=== PATIENT | female | born 1995 | race Caucasian/White ===

== ENCOUNTER 2018-09-01 21:41 | Outpatient (CLI) | payer OTHER ==
[2018-09-01 22:28] LABS: ADD UMIC NO; UR ASCORBIC ACID 40 mg/dL (NEGATIVE); UR BILIRUBIN (Dip) NEGATIVE (NEGATIVE); UR BLOOD (Dip) NEGATIVE (NEGATIVE); UR CLARITY SLIGHTLY CLOUDY (CLEAR); UR COLOR YELLOW (YELLOW); UR GLUCOSE (Dip) NEGATIVE (NEGATIVE); UR KETONES (Dip) NEGATIVE (NEGATIVE); UR LEUKOCYTE ESTERASE (Dip) NEGATIVE Leu/ul (NEGATIVE); UR NITRITE (Dip) NEGATIVE (NEGATIVE); UR RBC 0 /HPF (0-5); UR SQUAMOUS EPITHELIAL CELL FEW /HPF (FEW); UR TOTAL PROTEIN (Dip) NEGATIVE (NEGATIVE); UR UROBILINOGEN (Dip) 2+ mg/dL (NEGATIVE); UR WBC 3 /HPF (0-5)
== END 2018-09-01 23:55 | disposition home or self-care (01) ==
LOC: OBT 21:41 → L-D 21:43 → OBT 23:55
DX: O47.03 False labor before 37 completed weeks of gestation, third trimester (principal); O26.893 Other specified pregnancy related conditions, third trimester; Z3A.34 34 weeks gestation of pregnancy
CPT/HCPCS: 81001; 81003

== ENCOUNTER 2018-09-18 10:06 | Inpatient (IN) | payer OTHER ==
[2018-09-18] MEDS: LACTATED RINGER'S 1,000 ML IV ×2 (11:06→11:47)
[2018-09-18 11:37] LABS: RUPTURE FETAL MEMBRANES POSITIVE (NEGATIVE)
[2018-09-18] MEDS ORDERED: CARBOPROST 250 MCG INJ IM ×2 (12:00→16:00)
[2018-09-18] MEDS ORDERED: MISOPROSTOL 200 MCG TAB PR ×2 (12:00→16:00)
[2018-09-18] MEDS ORDERED: OXYTOCIN 30 UNITS/LR 500 ML IV ×2 (12:00→16:00)
[2018-09-18] MEDS ORDERED: METHYLERGONOVINE 0.2 MG INJ IM ×2 (12:00→16:00)
[2018-09-18] MEDS ORDERED: LIDOCAINE 1% (MPF) 30 ML INJ INJ (12:00)
[2018-09-18] MEDS ORDERED: CLINDAMYCIN 900 MG/D5W (PMX) 50 ML IVPB (12:11)
[2018-09-18 12:15] LABS: ADD MAN DIFF? NO
[2018-09-18 12:16] LABS: WHITE BLOOD COUNT 9.3 10^3/ul (4.8-10.8)
[2018-09-18 12:16] LABS: BASOPHILS % 0.2 % (0.0-2.0); EOSINOPHILS % 0.2 % (0.0-7.0); HEMATOCRIT 34.8 % (37.0-47.0); HEMOGLOBIN 11.6 g/dl (12.0-16.0); LYMPHOCYTES # 1.1 10^3/ul (0.8-2.9); LYMPHOCYTES % 12.3 % (15.0-51.0); MEAN CORPUSCULAR HEMOGLOBIN 28.3 pg (29.0-33.0); MEAN CORPUSCULAR HGB CONC 33.3 g/dl (32.0-37.0); MEAN CORPUSCULAR VOLUME 84.9 fl (82.0-101.0); MONOCYTE # 0.6 10^3/ul (0.3-0.9); MONOCYTES % 6.4 % (0.0-11.0); NEUTROPHIL # 7.5 10^3/ul (1.6-7.5); NEUTROPHILS % 80.6 % (39.0-77.0); PLATELET COUNT 289 10^3/UL (140-415); RED CELL DISTRIBUTION WIDTH 13.2 % (11.5-14.5)
[2018-09-18] MEDS: MAGNESIUM SULFATE 4 GM/100 ML 100 ML IV (12:19)
[2018-09-18] MEDS: CLINDAMYCIN 900 MG/D5W (PMX) 50 ML IVPB (12:20)
[2018-09-18] MEDS: BETAMET NA PHOS/AC(6 MG/ML) 2 ML INJ SYG IM (12:21)
[2018-09-18] MEDS: MAGNESIUM SULFATE 20 GM/500 ML 500 ML IV (12:45)
[2018-09-18 14:13] LABS: INR 0.85; PROTIME 11.7 Sec (11.9-14.9); PT RATIO 0.9
[2018-09-18] MEDS: OXYTOCIN 30 UNITS/LR 500 ML IV ×3 (14:37→15:37)
[2018-09-18] MEDS: LACTATED RINGER'S 1,000 ML IV* ×2 (15:37→23:37)
[2018-09-18] MEDS ORDERED: HYDROCODONE/APAP (5/325) TAB PO (16:00)
[2018-09-18] MEDS ORDERED: ACETAMINOPHEN 325 MG TAB PO (16:00)
[2018-09-18] MEDS ORDERED: DIPHENHYDRAMINE 25 MG CAP PO (16:00)
[2018-09-18] MEDS ORDERED: ZOLPIDEM 5 MG TAB PO (16:00)
[2018-09-18 17:08] LABS: HEPATITIS B SURFACE ANTIGEN NEGATIVE (NEGATIVE)
[2018-09-18] MEDS: LANOLIN HPA 1 PKT TOP (17:16)
[2018-09-18] MEDS: WITCH HAZEL/GLYCERIN PAD PR (17:16)
[2018-09-18] MEDS: BENZOCAINE 20% 56 ML SPRAY TOP (17:16)
[2018-09-18] MEDS: IBUPROFEN 800 MG TAB PO (17:16)
[2018-09-18] MEDS: SENNA/DOCUSATE NA (8.6MG/50MG) TAB PO (20:57)
[2018-09-18] MEDS: MAGNESIUM HYDROXIDE 30ML CUP PO (20:57)
[2018-09-18 22:28] LABS: RAPID PLASMA REAGIN NONREACTIVE (NR)
[2018-09-19] MEDS: IBUPROFEN 800 MG TAB PO ×4 (00:24→18:32)
[2018-09-19 07:32] LABS: ADD MAN DIFF? NO
[2018-09-19 07:38] LABS: BASOPHILS % 0.1 % (0.0-2.0); HEMATOCRIT 33.5 % (37.0-47.0); HEMOGLOBIN 11.1 g/dl (12.0-16.0); LYMPHOCYTES # 1.5 10^3/ul (0.8-2.9); LYMPHOCYTES % 11.9 % (15.0-51.0); MEAN CORPUSCULAR HGB CONC 33.1 g/dl (32.0-37.0); MEAN CORPUSCULAR VOLUME 84.4 fl (82.0-101.0); MEAN PLATELET VOLUME 11.4 fl (7.4-10.4); MONOCYTE # 0.6 10^3/ul (0.3-0.9); NEUTROPHIL # 10.2 10^3/ul (1.6-7.5); NEUTROPHILS % 82.5 % (39.0-77.0); PLATELET COUNT 310 10^3/UL (140-415); RED BLOOD COUNT 3.97 10^6/ul (4.20-5.40); RED CELL DISTRIBUTION WIDTH 13.4 % (11.5-14.5)
[2018-09-19 07:38] LABS: WHITE BLOOD COUNT 12.3 10^3/ul (4.8-10.8)
[2018-09-19] MEDS: LACTATED RINGER'S 1,000 ML IV* (19:00)
[2018-09-20] MEDS: IBUPROFEN 800 MG TAB PO ×3 (00:21→11:28)
[2018-09-20] MEDS: MEASLES,MUMPS,RUBELLA VACCINE INJ SC* (09:00)
[2018-09-20] MEDS: VARICELLA VACCINE LIVE/PF 1,350 UNIT/0.5 ML ML SC* (09:00)
[2018-09-20] MEDS: LACTATED RINGER'S 1,000 ML IV* (11:00)
[2018-09-20] MEDS: DIPHTH/TET/ACEL PERTUSS (ADULT) 0.5 ML VIAL IM* (11:28)
== END 2018-09-20 12:20 | disposition home or self-care (01) | DRG 807 ==
LOC: OBT 10:06 → L-D 10:07 → OBT 11:50 → L-D 12:16 → PP1 15:50
PROVIDERS: Obstetrics & Gynecology
PROC: 10E0XZZ Delivery of Products of Conception, External Approach (ICD-10-PCS; principal; 2018-09-18)
PROC: 0HQ9XZZ Repair Perineum Skin, External Approach (ICD-10-PCS; 2018-09-18)
PROC: 4A1HXCZ Monitoring of Products of Conception, Cardiac Rate, External Approach (ICD-10-PCS; 2018-09-18)
PROC: 3E0234Z Introduction of Serum, Toxoid and Vaccine into Muscle, Percutaneous Approach (ICD-10-PCS; 2018-09-20)
DX: O60.14X0 Preterm labor third trimester with preterm delivery third trimester, not applicable or unspecified (principal); Z37.0 Single live birth; O70.0 First degree perineal laceration during delivery; Z3A.33 33 weeks gestation of pregnancy; Z23 Encounter for immunization
CPT/HCPCS: 76815; 76817; 76818; 82731; 84112; 85025; 85610; 85730; 86592; 86850; 86900; 86901; 87340; 88307; 90715; 90716; 96360; 99464